=== PATIENT | female | born 1995 | race Caucasian/White ===

== ENCOUNTER 2025-04-29 17:36 | Emergency (ER) | payer MEDICAID, OTHER ==
[~2025-04-29] VITALS: Ht 165.1 cm; Wt 100.0 kg
[2025-04-29 17:38] VITALS: TEMP 36.7; O2SAT 98
[2025-04-29 18:25] VITALS: TEMP 98.1
[2025-04-29] MEDS: LIDOCAINE HCL 1% 20ML VIAL INFIL ONE (18:25)
[2025-04-29] MEDS: ACETAMINOPHEN 500MG TABLET PO ONE (18:25)
[2025-04-29 19:59] VITALS: BP 117/75; PULSE 90; RESP 14; O2SAT 90
== END 2025-04-29 20:06 ==
LOC: ER 17:36
DX: S01.511A Laceration without foreign body of lip, initial encounter (principal); Z65.3 Problems related to other legal circumstances; Z90.89 Acquired absence of other organs; Z02.89 Encounter for other administrative examinations; V43.52XA Car driver injured in collision with other type car in traffic accident, initial encounter; Y93.89 Activity, other specified; Y92.410 Unspecified street and highway as the place of occurrence of the external cause; Y99.8 Other external cause status
CPT/HCPCS: 40650; 99284; J2003; Z7610